=== PATIENT | male | born 1980 ===

== ENCOUNTER → 2018-07-26 21:53 | Outpatient (REF) | payer OTHER, SELFPAY ==
[2018-07-26 22:25] LABS: Add Manual Diff / Slide Review NO; Basophils Absolute Auto 100 /uL (0-100); Basophils Percent Auto 0.7 % (0-2); Eosinophils Absolute Auto 200 /uL (0-450); Eosinophils Percent Auto 1.8 % (2-4); Hematocrit 44.1 % (41-53); Hemoglobin 14.7 g/dL (13.5-17.5); Lymphocytes Absolute Auto 2100 /uL (1100-4500); Lymphocytes Percent Auto 24.5 % (25-40); Mean Corpuscular HGB Conc 33.4 % (30-36); Mean Corpuscular Hemoglobin 28.3 PG (26-34); Mean Corpuscular Volume 84.9 fL (80-100); Monocytes Absolute Auto 500 /uL (0-900); Monocytes Percent Auto 5.4 % (3-14); Neutrophils Absolute Auto 5800 /uL (1500-7000); Neutrophils Percent Auto 67.6 % (50-75); Platelet Count 273 X10^3/uL (150-400); Red Blood Cell Count 5.19 X10^6/uL (4.5-5.9); White Blood Cell Count 8.5 X10^3/uL (4.5-11.0)
[2018-07-26 22:56] LABS: Alanine Aminotransferase 29 IU/L (21-72); Albumin 4.6 g/dL (3.5-5.0); Albumin Globulin Ratio 1.3 (1.0-2.8); Alkaline Phosphatase 59 U/L (38-126); Aspartate Aminotransferase 21 IU/L (17-59); Bilirubin Total 0.3 mg/dL (0.2-1.3); Blood Urea Nitrogen 12 mg/dL (9-20); Calcium 9.9 mg/dL (8.4-10.2); Carbon Dioxide 26 mmol/L (22-32); Chloride 102 mmol/L (98-107); Estimated Glomerular Filt Rate > 60.0 mL/min (>60); Globulin 3.5 g/dL (1.7-4.1); Glucose 80 mg/dL (70-100); HEMOLYSIS < 15 (0-50); Potassium 4.3 mmol/L (3.4-5.1); Sodium 139 mmol/L (137-145); Total Protein 8.1 g/dL (6.3-8.2)
[2018-07-26 22:58] LABS: Erythrocyte Sedimentation Rate 6 MM/HR (0-15)
[2018-07-26 23:10] LABS: Free T3, Triiodothyronine Free 3.73 pg/mL (2.77-5.27); Free T4, Direct Thyroxine 1.05 ng/dL (0.78-2.19)
[2018-07-26 23:24] LABS: Thyroid Stimulating Hormone 1.42 uIU/mL (0.47-4.68)
[2018-07-26 23:25] LABS: C-Reactive Protein Quant < 0.5 mg/dL (<1.0)
== END ==
LOC: LAB 21:53
PROVIDERS: Visit Provider Physician Assistant
DX: G44.52 New daily persistent headache (NDPH) (principal); Z13.89 Encounter for screening for other disorder
CPT/HCPCS: 36415; 80053; 84439; 84443; 84481; 85025; 85651; 86140